=== PATIENT | male | born 1960 | race Caucasian/White ===

== ENCOUNTER 2021-11-16 10:51 | Outpatient (CLI) | payer OTHER | END 2021-11-16 10:56 | disposition home or self-care (01) | LOC: LAB 10:51 | PROVIDERS: ATTEND Surgery | DX: R97.20 Elevated prostate specific antigen [PSA] (principal) ==

== ENCOUNTER 2021-12-05 09:57 | Outpatient (CLI) | payer OTHER | END 2021-12-05 10:01 | disposition home or self-care (01) | LOC: SONOGRAMA 09:57 | PROVIDERS: ATTEND Surgery | DX: R97.20 Elevated prostate specific antigen [PSA] (principal); C80.1 Malignant (primary) neoplasm, unspecified ==